=== PATIENT | male | born 1960 | race African-American/Black ===

== ENCOUNTER 2024-11-15 12:43 | Inpatient (IN) | payer MEDICARE ==
[~2024-11-15] VITALS: Ht 175.3 cm; Wt 65.8 kg
[2024-11-15] MEDS ORDERED: ALBUTEROL FS 2.5 MG/3 ML VIAL.NEB ONE (13:47)
[2024-11-15] MEDS ORDERED: Magnesium 1GM/D5W 100ML PREMIX 200 ML IV ONE (13:49)
[2024-11-15] MEDS ORDERED: methylPREDNISolone SOD SUCC 125 MG/2ML VIAL ONE (13:49)
[2024-11-15 13:50] LABS: BASOPHILS # (AUTO) 0.3 K/uL (0.0-0.2); BASOPHILS % (AUTO) 2.5 % (0.0-2.0); EOSINOPHILS # (AUTO) 0.3 K/uL (0.0-0.7); EOSINOPHILS % (AUTO) 2.9 % (0.0-6.0); HEMATOCRIT 49 % (39-51); HEMOGLOBIN 16.4 g/dL (13.5-17.5); LYMPHOCYTES # (AUTO) 1.3 K/uL (0.8-4.8); LYMPHOCYTES % (AUTO) 11.5 % (20.0-44.0); MEAN CORPUSCULAR HEMOGLOBIN 32 PG (26.0-33.0); MEAN CORPUSCULAR HGB CONC 34 g/dl (31.0-36.0); MEAN CORPUSCULAR VOLUME 95 fL (80-96); MONOCYTES # (AUTO) 0.5 K/uL (0.1-1.30); MONOCYTES % (AUTO) 4.4 % (2.0-12.0); NEUTROPHILS # (AUTO) 9.1 K/uL (1.8-8.9); NEUTROPHILS % (AUTO) 78.7 % (43.0-81.0); PLATELET COUNT (AUTO) 289 K/uL (150-450); RED BLOOD CELL COUNT(AUTO) 5.15 MIL/uL (4.5-6.0); RED CELL DISTRIBUTION WIDTH 14.1 % (11.5-15.0); WHITE BLOOD COUNT (AUTO) 11.6 K/uL (4.3-11.0)
[2024-11-15] MEDS: methylPREDNISolone SOD SUCC 125 MG/2ML VIAL IV ONE (13:58)
[2024-11-15] MEDS: Magnesium 1GM/D5W 100ML PREMIX 200 ML IV ONE (13:58)
[2024-11-15 13:59] VITALS: O2SAT 97
[2024-11-15] MEDS: ALBUTEROL FS 2.5 MG/3 ML VIAL.NEB CONTNEB ONE (13:59)
[2024-11-15] MEDS: IPRATROPIUM NEB FS 0.5 MG/2.5 ML AMPUL.NEB NEB ONE (13:59)
[2024-11-15 14:03] LABS: ALANINE AMINOTRANSFERASE 32 U/L (12-78); ALBUMIN 4.1 g/dL (3.4-5.0); ALKALINE PHOSPHATASE 94 U/L (46-116); ASPARTATE AMINOTRANSFERASE 28 U/L (15-37); BILIRUBIN,DIRECT 0.1 mg/dL (0.0-0.2); BILIRUBIN,TOTAL 0.4 mg/dL (0.2-1.0); CALCIUM, SERUM 9.6 mg/dL (8.5-10.1); CARBON DIOXIDE 32 mmol/L (21-32); CHLORIDE 102 mmol/L (98-107); CREATININE 0.9 mg/dL (0.6-1.3); GLUCOSE 102 mg/dL (74-106); POTASSIUM 3.6 mmol/L (3.5-5.1); SODIUM SERUM 140 mmol/L (136-145); UREA NITROGEN, BLOOD 7 mg/dL (7-18)
[2024-11-15 14:06] LABS: LACTIC ACID 0.8 mmol/L (0.4-2.0)
[2024-11-15 14:42] LABS: ABG OXYGEN SATURATION 95.5 % (94.0-98.0); ABG PCO2 42.7 mmHg (35.0-48.0); ABG PH 7.403 (7.350-7.450); ABG PO2 76.8 mmHg (83.0-108.0); ABG TOTAL HEMOGLOBIN 16.3 G/dL (13.5-17.5); COHb 0.2 % (0.5-1.5); MetHb 0.4 % (0.0-1.5); O2Hb 94.9 % (94.0-97.0); SITE, ABG RIGHT RADIAL
[2024-11-15] MEDS ORDERED: LEVOFLOXACIN 750 MG /D5W 150ML 150 ML IV ONE (15:48)
[2024-11-15] MEDS ORDERED: ASCORBIC ACID PO (15:49)
[2024-11-15] MEDS ORDERED: ALBU18HF2 IH (15:49)
[2024-11-15] MEDS ORDERED: CYAN100096 PO (15:49)
[2024-11-15] MEDS ORDERED: ZINC PO (15:49)
[2024-11-15] MEDS ORDERED: [UNRECOGNIZED DRUG - OTHER] PO (15:49)
[2024-11-15] MEDS ORDERED: CHOLECALCIFEROL PO (15:49)
[2024-11-15] MEDS ORDERED: MULT-594 PO (15:49)
[2024-11-15] MEDS ORDERED: BENZ-38 PO (15:49)
[2024-11-15] MEDS: LEVOFLOXACIN 750 MG /D5W 150ML PIGGYBACK IV ONE (15:50)
[2024-11-15 16:00] VITALS: BP 132/78; TEMP 98.2; O2SAT 98
[2024-11-15] MEDS ORDERED: ONDANSETRON HCL/PF 4 MG/2 ML VIAL IVP PRN (16:30)
[2024-11-15] MEDS ORDERED: ACETAMINOPHEN 325 MG TABLET PO PRN (16:30)
[2024-11-15] MEDS ORDERED: MAGNESIUM HYDROXIDE 30 ML UDC PO PRN (16:30)
[2024-11-15 18:01] VITALS: BP 132/78; TEMP 98.2; O2SAT 98
[2024-11-15 20:00] VITALS: BP 120/80; TEMP 97.9; O2SAT 95
[2024-11-15] MEDS: methylPREDNISolone SOD SUCC 40 MG/ML VIAL IV SCH (20:14)
[2024-11-15] MEDS: IPRATROPIUM NEB FS 0.5 MG/2.5 ML AMPUL.NEB NEB PRN (21:33)
[2024-11-15] MEDS: ALBUTEROL FS 2.5 MG/3 ML VIAL.NEB NEB PRN (21:33)
[2024-11-15 21:34] VITALS: O2SAT 95
[2024-11-15 21:44] VITALS: O2SAT 96
[2024-11-16] VITALS (16 sets, daily range): BP systolic 108–175; BP diastolic 77–93; TEMP 97.9–99; O2SAT 90–98
[2024-11-16 07:08] LABS: BASOPHILS % (AUTO) 0.2 % (0.0-2.0); EOSINOPHILS # (AUTO) 0.1 K/uL (0.0-0.7); EOSINOPHILS % (AUTO) 0.7 % (0.0-6.0); HEMATOCRIT 47 % (39-51); HEMOGLOBIN 15.5 g/dL (13.5-17.5); LYMPHOCYTES # (AUTO) 0.9 K/uL (0.8-4.8); LYMPHOCYTES % (AUTO) 7.7 % (20.0-44.0); MEAN CORPUSCULAR HEMOGLOBIN 31 PG (26.0-33.0); MEAN CORPUSCULAR HGB CONC 33 g/dl (31.0-36.0); MEAN CORPUSCULAR VOLUME 95 fL (80-96); MONOCYTES # (AUTO) 0.5 K/uL (0.1-1.30); MONOCYTES % (AUTO) 3.8 % (2.0-12.0); NEUTROPHILS # (AUTO) 10.8 K/uL (1.8-8.9); NEUTROPHILS % (AUTO) 87.6 % (43.0-81.0); PLATELET COUNT (AUTO) 275 K/uL (150-450); RED BLOOD CELL COUNT(AUTO) 4.96 MIL/uL (4.5-6.0); WHITE BLOOD COUNT (AUTO) 12.4 K/uL (4.3-11.0)
[2024-11-16] MEDS: PANTOPRAZOLE 40 MG TABLET.DR PO SCH (07:31)
[2024-11-16 08:14] LABS: CALCIUM, SERUM 9.7 mg/dL (8.5-10.1); CREATININE 0.8 mg/dL (0.6-1.3); MAGNESIUM 2.3 mg/dL (1.8-2.4); PHOSPHORUS 4.5 mg/dL (2.5-4.9); POTASSIUM 4.2 mmol/L (3.5-5.1)
[2024-11-16] MEDS: IPRATROPIUM NEB FS 0.5 MG/2.5 ML AMPUL.NEB NEB SCH (10:54)
[2024-11-16] MEDS: ALBUTEROL FS 2.5 MG/3 ML VIAL.NEB NEB SCH (10:54)
[2024-11-16] MEDS: GUAIFENESIN/D-METHORPHAN HB 5 ML UDC PO PRN (12:03)
[2024-11-16] MEDS: LEVOFLOXACIN (250MG) 250 MG TABLET PO SCH (16:50)
[2024-11-17] VITALS (18 sets, daily range): BP systolic 110–119; BP diastolic 77–81; TEMP 98.2–98.6; O2SAT 92–98
[2024-11-17 07:13] LABS: BASOPHILS % (AUTO) 0.1 % (0.0-2.0); EOSINOPHILS % (AUTO) 0.5 % (0.0-6.0); HEMATOCRIT 46 % (39-51); HEMOGLOBIN 15.2 g/dL (13.5-17.5); LYMPHOCYTES # (AUTO) 0.8 K/uL (0.8-4.8); LYMPHOCYTES % (AUTO) 7.3 % (20.0-44.0); MEAN CORPUSCULAR HEMOGLOBIN 32 PG (26.0-33.0); MEAN CORPUSCULAR HGB CONC 33 g/dl (31.0-36.0); MEAN CORPUSCULAR VOLUME 95 fL (80-96); MONOCYTES # (AUTO) 0.7 K/uL (0.1-1.30); MONOCYTES % (AUTO) 6.5 % (2.0-12.0); NEUTROPHILS # (AUTO) 9.1 K/uL (1.8-8.9); NEUTROPHILS % (AUTO) 85.6 % (43.0-81.0); PLATELET COUNT (AUTO) 258 K/uL (150-450); RED BLOOD CELL COUNT(AUTO) 4.83 MIL/uL (4.5-6.0); RED CELL DISTRIBUTION WIDTH 14.4 % (11.5-15.0); WHITE BLOOD COUNT (AUTO) 10.6 K/uL (4.3-11.0)
[2024-11-17 07:17] LABS: CALCIUM, SERUM 9.6 mg/dL (8.5-10.1); CREATININE 1.1 mg/dL (0.6-1.3); MAGNESIUM 2.2 mg/dL (1.8-2.4); PHOSPHORUS 4.3 mg/dL (2.5-4.9); POTASSIUM 4.3 mmol/L (3.5-5.1)
[2024-11-17] MEDS: MULTIVITAMINS,THERAGRAN 1 UDTAB TABLET PO SCH (08:22)
[2024-11-18] VITALS (13 sets, daily range): BP systolic 106–126; BP diastolic 83–85; TEMP 98.1–98.2; O2SAT 95–99
[2024-11-18 10:03] LABS: BASOPHILS % (AUTO) 0.1 % (0.0-2.0); EOSINOPHILS # (AUTO) 0.1 K/uL (0.0-0.7); EOSINOPHILS % (AUTO) 0.8 % (0.0-6.0); HEMATOCRIT 47 % (39-51); HEMOGLOBIN 15.2 g/dL (13.5-17.5); LYMPHOCYTES % (AUTO) 8.7 % (20.0-44.0); MEAN CORPUSCULAR HEMOGLOBIN 31 PG (26.0-33.0); MEAN CORPUSCULAR HGB CONC 33 g/dl (31.0-36.0); MEAN CORPUSCULAR VOLUME 96 fL (80-96); MONOCYTES # (AUTO) 0.4 K/uL (0.1-1.30); MONOCYTES % (AUTO) 3.9 % (2.0-12.0); NEUTROPHILS # (AUTO) 9.7 K/uL (1.8-8.9); NEUTROPHILS % (AUTO) 86.5 % (43.0-81.0); PLATELET COUNT (AUTO) 253 K/uL (150-450); RED BLOOD CELL COUNT(AUTO) 4.86 MIL/uL (4.5-6.0); RED CELL DISTRIBUTION WIDTH 14.1 % (11.5-15.0); WHITE BLOOD COUNT (AUTO) 11.3 K/uL (4.3-11.0)
[2024-11-18 11:08] LABS: CALCIUM, SERUM 9.7 mg/dL (8.5-10.1); CREATININE 1.1 mg/dL (0.6-1.3); MAGNESIUM 2.2 mg/dL (1.8-2.4); POTASSIUM 3.8 mmol/L (3.5-5.1)
[2024-11-18] MEDS: methylPREDNISolone SOD SUCC 40 MG/ML VIAL IV SCH (21:08)
[2024-11-19] VITALS (10 sets, daily range): BP systolic 120–132; BP diastolic 64–88; TEMP 97.5–97.9; O2SAT 94–98
[2024-11-19 06:19] LABS: BASOPHILS % (AUTO) 0.3 % (0.0-2.0); EOSINOPHILS # (AUTO) 0.1 K/uL (0.0-0.7); EOSINOPHILS % (AUTO) 0.7 % (0.0-6.0); HEMATOCRIT 46 % (39-51); HEMOGLOBIN 15.3 g/dL (13.5-17.5); LYMPHOCYTES # (AUTO) 1.4 K/uL (0.8-4.8); LYMPHOCYTES % (AUTO) 16.4 % (20.0-44.0); MEAN CORPUSCULAR HEMOGLOBIN 32 PG (26.0-33.0); MEAN CORPUSCULAR HGB CONC 33 g/dl (31.0-36.0); MEAN CORPUSCULAR VOLUME 95 fL (80-96); MONOCYTES # (AUTO) 0.6 K/uL (0.1-1.30); MONOCYTES % (AUTO) 7.2 % (2.0-12.0); NEUTROPHILS # (AUTO) 6.6 K/uL (1.8-8.9); NEUTROPHILS % (AUTO) 75.4 % (43.0-81.0); PLATELET COUNT (AUTO) 269 K/uL (150-450); RED BLOOD CELL COUNT(AUTO) 4.83 MIL/uL (4.5-6.0); WHITE BLOOD COUNT (AUTO) 8.8 K/uL (4.3-11.0)
[2024-11-19 06:41] LABS: CALCIUM, SERUM 9.4 mg/dL (8.5-10.1); CREATININE 0.9 mg/dL (0.6-1.3); PHOSPHORUS 4.4 mg/dL (2.5-4.9); POTASSIUM 4.4 mmol/L (3.5-5.1)
[2024-11-20 07:00] VITALS: BP 152/87; TEMP 98.1; O2SAT 99
[2024-11-20 07:25] VITALS: O2SAT 98
[2024-11-20 07:35] VITALS: O2SAT 99
[2024-11-20 08:00] VITALS: BP 152/87; TEMP 98.1; O2SAT 99
[2024-11-20] MEDS ORDERED: ALBU18HF2 IH (11:21)
[2024-11-20] MEDS ORDERED: PRED20TA PO (11:21)
[2024-11-20] MEDS ORDERED: IPRA3AMP23 IH (11:21)
[2024-11-20] MEDS ORDERED: LEVO750T46 PO (11:21)
[2024-11-20] MEDS ORDERED: FLUT1DIS INH (11:21)
[2024-11-20 14:49] VITALS: O2SAT 96
[2024-11-20 14:58] VITALS: O2SAT 98
== END 2024-11-20 15:45 | disposition home or self-care (01) | DRG 871 ==
LOC: ER 12:52 → TELE 16:14 → MED 11-16 16:08
PROVIDERS: ADMIT Nurse Practitioner Family; ATTEND Nurse Practitioner Family
DX: A41.9 Sepsis, unspecified organism (principal); J96.01 Acute respiratory failure with hypoxia; J44.1 Chronic obstructive pulmonary disease with (acute) exacerbation; J44.0 Chronic obstructive pulmonary disease with (acute) lower respiratory infection; Z20.822 Contact with and (suspected) exposure to COVID-19; Z87.891 Personal history of nicotine dependence; Z88.0 Allergy status to penicillin; Z79.899 Other long term (current) drug therapy; Z79.51 Long term (current) use of inhaled steroids; J20.8 Acute bronchitis due to other specified organisms; N28.1 Cyst of kidney, acquired; Z91.81 History of falling; J32.9 Chronic sinusitis, unspecified; I70.0 Atherosclerosis of aorta; R91.1 Solitary pulmonary nodule; M47.9 Spondylosis, unspecified
CPT/HCPCS: 36415; 70220-TC; 71045-TC; 80048-TC; 80061-TC; 80076-TC; 83605-TC; 83735-TC; 84100-TC; 84484-TC; 85025-TC; 85378-TC; 87040-TC; 93307-TC; 94760-TC; 94799-TC; G0378; J1956; J2919; J3475

== ENCOUNTER 2024-11-29 11:07 | Emergency (ER) | payer MEDICARE ==
[~2024-11-29] VITALS: Ht 175.3 cm; Wt 70.3 kg
[~2024-11-29 11:07] MED LIST: ALBU18HF2 IH; ASCORBIC ACID PO; BENZ-38 PO; CHOLECALCIFEROL PO; CYAN100096 PO; FLUT1DIS INH; IPRA3AMP23 IH; LEVO750T46 PO; MULT-594 PO; PRED20TA PO; ZINC PO; [UNRECOGNIZED DRUG - OTHER] PO
[2024-11-29] MEDS: IV NS 0.9% 1,000 ML BAG IV ONE (12:14)
[2024-11-29 12:18] VITALS: TEMP 98.5
[2024-11-29] MEDS ORDERED: dexaMETHasone SOD PHOSPHATE 1 ML ONE (12:24)
[2024-11-29] MEDS: dexaMETHasone SOD PHOSPHATE 10 MG/ML VIAL IV ONE (12:25)
[2024-11-29 12:28] LABS: BASOPHILS # (AUTO) 0.1 K/uL (0.0-0.2); BASOPHILS % (AUTO) 0.7 % (0.0-2.0); EOSINOPHILS # (AUTO) 0.2 K/uL (0.0-0.7); EOSINOPHILS % (AUTO) 1.4 % (0.0-6.0); HEMATOCRIT 46 % (39-51); HEMOGLOBIN 15.5 g/dL (13.5-17.5); LYMPHOCYTES # (AUTO) 1.9 K/uL (0.8-4.8); LYMPHOCYTES % (AUTO) 15.1 % (20.0-44.0); MEAN CORPUSCULAR HEMOGLOBIN 32 PG (26.0-33.0); MEAN CORPUSCULAR HGB CONC 33 g/dl (31.0-36.0); MEAN CORPUSCULAR VOLUME 94 fL (80-96); MONOCYTES # (AUTO) 0.5 K/uL (0.1-1.30); MONOCYTES % (AUTO) 4.3 % (2.0-12.0); NEUTROPHILS # (AUTO) 10.1 K/uL (1.8-8.9); NEUTROPHILS % (AUTO) 78.5 % (43.0-81.0); PLATELET COUNT (AUTO) 274 K/uL (150-450); RED BLOOD CELL COUNT(AUTO) 4.92 MIL/uL (4.5-6.0); WHITE BLOOD COUNT (AUTO) 12.9 K/uL (4.3-11.0)
[2024-11-29] MEDS ORDERED: ALBUTEROL FS 2.5 MG/3 ML VIAL.NEB ONE (12:29)
[2024-11-29] MEDS ORDERED: methylPREDNISolone SOD SUCC 125 MG/2ML VIAL IV ONE (12:30)
[2024-11-29 12:35] VITALS: O2SAT 96
[2024-11-29 12:35] LABS: CREATININE 0.8 mg/dL (0.6-1.3); POTASSIUM 3.7 mmol/L (3.5-5.1)
[2024-11-29] MEDS: ALBUTEROL FS 2.5 MG/3 ML VIAL.NEB NEB ONE (12:39)
[2024-11-29] MEDS: IPRATROPIUM NEB FS 0.5 MG/2.5 ML AMPUL.NEB NEB ONE (12:39)
[2024-11-29] MEDS ORDERED: PRED20TA PO (13:23)
[2024-11-29 13:35] VITALS: O2SAT 97; O2SAT 98
[2024-11-29] MEDS ORDERED: ZOLP6.252 PO (13:41)
[2024-11-29 14:30] VITALS: BP 126/64; O2SAT 94
== END 2024-11-29 14:31 | disposition home or self-care (01) ==
LOC: ER 11:10
DX: J44.1 Chronic obstructive pulmonary disease with (acute) exacerbation (principal); F17.200 Nicotine dependence, unspecified, uncomplicated; Z79.51 Long term (current) use of inhaled steroids; Z79.52 Long term (current) use of systemic steroids; Z88.0 Allergy status to penicillin; Z79.899 Other long term (current) drug therapy
CPT/HCPCS: 99285; 96374; 71045; 96361; 93005; 85025; 80048; 36415; 94644; J1100; J7030